=== PATIENT | female | born 2000 | race Caucasian/White ===

== ENCOUNTER → 2025-01-16 08:40 | Outpatient (REF) | payer BC, SELFPAY ==
[2025-01-16 09:28] LABS: % Basophils 0.9 % (0-2); % Eosinophils 1.6 % (0-6); % Immature Granulocytes 0.2 % (0-0.5); % Lymphocytes 26.9 % (20.5-51.1); % Monocytes 9.1 % (1.7-9.3); % Neutrophils 61.3 % (42.2-75.2); Absolute Basophils 0.1 10^3/uL (0-0.2); Absolute Eosinophils 0.1 10^3/uL (0-0.7); Absolute Lymphocytes 1.5 10^3/uL (1.2-3.4); Absolute Monocytes 0.5 10^3/uL (0.1-0.6); Absolute Neutrophils 3.5 10^3/uL (1.4-6.5); Hematocrit 43.8 % (37.0-47.0); Hemoglobin 14.9 g/dL (12.0-16.0); Mean Corpuscular Hgb 29.9 pg (27.0-31.0); Mean Platelet Volume 10.3 fL (7.4-10.4); Nucleated Red Blood Cells % 0 %; Platelet Count 272 10^3/uL (130-400); Red Blood Cell Count 4.98 10^6/uL (4.20-5.40); Red Cell Dist. Width 12.4 % (11.5-14.5); White Blood Cell Count 5.7 10^3/uL (4.8-10.8)
[2025-01-16 10:12] LABS: Urine Albumin Negative (Neg - Trace); Urine Bilirubin Negative (Negative); Urine Character Clear (Clear); Urine Color Yellow; Urine Glucose Negative (Negative); Urine Ketone Negative (Negative); Urine Leukocyte 1+ (Negative); Urine Nitrite Negative (Negative); Urine Occult Blood Negative (Negative); Urine Urobilinogen Negative (Neg - 1+)
[2025-01-16 10:39] LABS: ALT (SGPT) 29 U/L (0-35); AST (SGOT) 26 U/L (14-36); Albumin 5.1 g/dl (3.5-5.0); Alkaline Phosphatase 80 U/L (38-126); Blood Urea Nitrogen 14 mg/dl (7-17); Carbon Dioxide 23 mmol/L (22-30); Chloride 103 mmol/L (98-107); Glucose 94 mg/dl (70-99); Sodium 137 mmol/L (135-145); Total Cholesterol 254 mg/dl (50-199); Triglyceride 83 mg/dl (10-149); Very Low Density Lipoprotein 16 mg/dl (0-30); eGFR > 60.00
[2025-01-16 10:48] LABS: HDL Cholesterol 123 mg/dl; LDL Cholesterol, Calculated 115 mg/dl
[2025-01-16 10:51] LABS: Urine Squamous Cell >30 /LPF (Few)
[2025-01-16 10:52] LABS: Urine Amorphous Seen
[2025-01-16 10:53] LABS: Urine Bacteria Few (Negative); Urine Red Blood Cell 0-2 /HPF (0-2)
[2025-01-16 11:04] LABS: Erythrocyte Sed Rate 5 mm/hour (0-20)
[2025-01-16 12:48] LABS: TSH Reflex To Free T4 1.12 uIU/ml (0.47-4.68)
[2025-01-16 23:28] LABS: IgA 191 mg/dl (70-400)
[2025-01-18 08:58] LABS: tTG IgA Antibody <1.02 FLU (0.00-4.99)
[2025-01-18 23:31] LABS: Endomysial IgA Antibody Titer <1:10 (<1:10)
== END ==
LOC: REG 08:40
PROVIDERS: ATTENDING PHYSICIAN Family Medicine
DX: Z00.01 Encounter for general adult medical examination with abnormal findings (principal); K58.2 Mixed irritable bowel syndrome
CPT/HCPCS: 36415; 80053; 80061; 81003; 81015; 82784; 83036; 83516; 84443; 85025; 85652; 86231; 87086